=== PATIENT | male | born 1990 | race Caucasian/White ===

== ENCOUNTER 2018-07-04 18:00 | Emergency (ER) | payer OTHER ==
[~2018-07-04] VITALS: Ht 180.3 cm; Wt 93.0 kg
[~2018-07-04 18:00] MED LIST: KEFLEX500 MG PO
[2018-07-04] MEDS ORDERED: AMOXICILLIN 50500 MG PO (18:33)
[2018-07-04 18:45] VITALS: BP 133/72
== END 2018-07-04 18:54 | disposition home or self-care (01) ==
LOC: M.ERS 18:00
DX: H66.92 Otitis media, unspecified, left ear (principal); F17.210 Nicotine dependence, cigarettes, uncomplicated